=== PATIENT | female | born 1990 | race Caucasian/White ===

== ENCOUNTER 2020-07-09 14:35 | Outpatient (REF) | payer MEDICAID, SELFPAY ==
[2020-07-10 08:47] LABS: BV Int Neg Control Negative (Negative); BV Int Pos Control Positive (Positive)
== END 2020-07-09 14:36 | disposition home or self-care (01) ==
LOC: HO.LAB 14:35
PROVIDERS: PCP Student in an Organized Health Care Education/Training Program; Visit Provider Obstetrics & Gynecology
DX: Z01.419 Encounter for gynecological examination (general) (routine) without abnormal findings (principal); N89.8 Other specified noninflammatory disorders of vagina
CPT/HCPCS: 87480; 87510; 87660; 88142

== ENCOUNTER → 2021-02-27 11:49 | Outpatient (BNVA) | payer MEDICAID, SELFPAY | PROVIDERS: Visit Provider Obstetrics & Gynecology | CPT/HCPCS: 99212 ==

== ENCOUNTER 2021-11-11 10:39 | Outpatient (REF) | payer MEDICAID, SELFPAY ==
[2021-11-11 16:09] LABS: CT PCR NOT DETECTED (Not Detect.); NG PCR NOT DETECTED (Not Detect.)
== END 2021-11-11 10:40 | disposition home or self-care (01) ==
LOC: HO.LAB 10:39
PROVIDERS: Visit Provider Advanced Practice Midwife
DX: Z01.419 Encounter for gynecological examination (general) (routine) without abnormal findings (principal); Z20.2 Contact with and (suspected) exposure to infections with a predominantly sexual mode of transmission
CPT/HCPCS: 87491; 87591

== ENCOUNTER 2022-01-15 07:56 | Outpatient (REF) | payer MEDICAID, SELFPAY ==
[2022-01-15 08:30] LABS: COVID-19 Test Positive (Negative); IDNOW Serial# 16C4AD1C
== END 2022-01-15 07:57 | disposition home or self-care (01) ==
LOC: HO.LAB 07:56
PROVIDERS: Visit Provider Internal Medicine
DX: Z20.822 Contact with and (suspected) exposure to COVID-19 (principal)
CPT/HCPCS: 87635; C9803

== ENCOUNTER 2022-04-24 06:31 | Emergency (ER) | payer MEDICAID, SELFPAY ==
--- NOTE | ~2022-04-24 | CT_ITS ---
EXAMINATION: CT ABDOMEN AND PELVIS WITHOUT CONTRAST CLINICAL INFORMATION: Right lower quadrant pain, rule out appendicitis. COMPARISON: Pelvic ultrasound from earlier today. TECHNIQUE: Multidetector volumetric imaging was performed from the superior aspect of the liver through the pubic symphysis. Sagittal and coronal reformatted images were obtained on the technologist's workstation. Lack of intravenous and oral contrast limits visceral evaluation. This CT examination was performed using dose optimization techniques as appropriate, variously including the following: *Automated exposure control *Adjustment of mA and/or kV according to patient size (this includes techniques or standardized protocols for targeted exams where dose is matched to indication/reason for exam; i.e. extremities or head) *Use of iterative reconstruction technique DLP: 714 mGy-cm FINDINGS: LUNG BASES: The visualized lung bases are unremarkable. LIVER, GALLBLADDER, AND BILIARY TREE: Unremarkable. PANCREAS: Unremarkable. SPLEEN: Unremarkable. ADRENAL GLANDS: Unremarkable. KIDNEYS AND URETERS: The kidneys are normal in size, shape, and attenuation. Punctate nonobstructing intrarenal calculi are seen bilaterally. No hydroureteronephrosis. No perinephric stranding. BLADDER: Unremarkable. GASTROINTESTINAL TRACT: The stomach and small bowel unremarkable. The terminal ileum shows mild mural fatty infiltration without surrounding abnormality. The cecum extends into the right hemipelvis and abuts the right adnexa. Mild adjacent free fluid is seen. A definitive abnormal appendix is not seen. The cecum and remainder of the large bowel is unremarkable. The rectum is unremarkable. ABDOMINAL WALL: No significant hernia is appreciated. LYMPH NODES: No lymphadenopathy. VASCULAR: Unremarkable. PELVIC VISCERA: Anteverted/anteflexed uterus. Mild pelvic free fluid with mild prominence of the ovaries bilaterally. OSSEOUS STRUCTURES: Unremarkable. CT/CT abdomen pelvis wo con IMPRESSION: 1. Extension of the cecum inferiorly into the right hemipelvis confounds evaluation. This abuts the right adnexa with mild adjacent free fluid. No definitive acute appendicitis. Free fluid may be secondary to physiologic fluid from the ovaries. Mild mural fatty infiltration in the terminal ileum is nonspecific, but can be seen as sequelae of previous infectious/inflammatory process. Pelvic ultrasound from today showed no significant abnormality. If pain persists or worsens, short-term CT follow-up, preferably with intravenous and oral contrast is recommended as clinically indicated. 2. Punctate nonobstructing intrarenal calculi bilaterally.
--- NOTE | ~2022-04-24 | US_ITS ---
EXAMINATION: US PELVIS CLINICAL INFORMATION: Right lower quadrant pain, rule out ovarian torsion. COMPARISON: None TECHNIQUE: Ultrasound of the pelvis is performed using both transabdominal and transvaginal transducers along with Doppler. Transvaginal imaging is performed due to inadequate visualization transabdominally. FINDINGS: Uterus: Anteverted/anteflexed measuring 7.2 x 3.3 x 5.1 cm. The endometrial stripe measures up to 0.2 cm without focal abnormality. The cervix is closed with mild anechoic fluid within the canal. No other focal abnormality. Mild pelvic free fluid. Right ovary: 3.5 x 2.8 x 2.5 cm with a volume of 12.8 mL. Dominant anechoic follicle measuring 1.6 cm. Doppler showed no abnormal vascular flow. Left ovary: 3.9 x 3.2 x 3.1 cm with a volume of 20.3 mL. A dominant anechoic follicle measures 3.2 x 1.2 x 2.4 cm. A smaller follicle measures 2.5 x 1.5 x 1.7 cm. Doppler showed no abnormal vascular flow. US/US pelvic ovarian doppler IMPRESSION: 1. Small bilateral ovarian dominant follicles, mild anechoic fluid within the cervical canal and mild pelvic free fluid is likely physiologic. No evidence for ovarian torsion.
--- NOTE | ~2022-04-24 | US_ITS ---
EXAMINATION: US PELVIS CLINICAL INFORMATION: Right lower quadrant pain, rule out ovarian torsion. COMPARISON: None TECHNIQUE: Ultrasound of the pelvis is performed using both transabdominal and transvaginal transducers along with Doppler. Transvaginal imaging is performed due to inadequate visualization transabdominally. FINDINGS: Uterus: Anteverted/anteflexed measuring 7.2 x 3.3 x 5.1 cm. The endometrial stripe measures up to 0.2 cm without focal abnormality. The cervix is closed with mild anechoic fluid within the canal. No other focal abnormality. Mild pelvic free fluid. Right ovary: 3.5 x 2.8 x 2.5 cm with a volume of 12.8 mL. Dominant anechoic follicle measuring 1.6 cm. Doppler showed no abnormal vascular flow. Left ovary: 3.9 x 3.2 x 3.1 cm with a volume of 20.3 mL. A dominant anechoic follicle measures 3.2 x 1.2 x 2.4 cm. A smaller follicle measures 2.5 x 1.5 x 1.7 cm. Doppler showed no abnormal vascular flow. US/US pelvic and transvaginal IMPRESSION: 1. Small bilateral ovarian dominant follicles, mild anechoic fluid within the cervical canal and mild pelvic free fluid is likely physiologic. No evidence for ovarian torsion.
[2022-04-24 06:50] VITALS: BP 149/74; PULSE 105; RESP 16; TEMP 36.4; O2SAT 97; BMI 60.0
[2022-04-24 07:21] LABS: Appearance Urine Hazy; Color Urine Yellow; Glucose Urine UA Negative (Negative); Hematocrit 37.4 % (37.0-47.0); Hemoglobin 13.3 g/dl (12.0-16.0); Leukocyte Esterase Urine Small (1+) (Negative); Mean Corpuscular HGB Conc 35.6 g/dl (31.0-35.0); Mean Corpuscular Hemoglobin 29.5 pg (27.0-33.0); Mean Corpuscular Volume 82.9 fL (80.0-98.0); Mean Platelet Volume 9.2 fL (9.4-12.3); Nitrite Urine Negative (Negative); Platelet Count 297 X10*3/uL (160-400); Red Blood Count 4.51 X10*6/uL (4.20-5.50); Red Cell Distribution Width 11.7 % (11.0-16.0); Specific Gravity - Urine 1.025 (1.005-1.025); Urine Blood Moderate (2+) (Negative); Urine Ketones Negative (Negative); Urine Protein Negative (Neg-Trace); White Blood Count 7.6 X10*3/uL (4.8-10.8)
[2022-04-24 07:28] LABS: Bacteria Urine 4+ (None Seen); Hyaline Casts Urine 0-2 /LPF (0-2); RBC Urine 0-2 /HPF (0-2); UACC Culture Trigger YES; WBC Urine 21-50 /HPF (0-5)
[2022-04-24 07:43] LABS: Alanine Aminotransferase 11 U/L (0-31); Albumin Level 4.5 g/dL (3.5-5.0); Alkaline Phosphatase 59 U/L (39-117); Anion Gap 15 (12-20); Aspartate Amino Transferase 15 U/L (5-31); Bilirubin Direct 0.2 mg/dL (0.0-0.5); Bilirubin Total 0.4 mg/dL (0.0-1.0); Blood Urea Nitrogen 15 mg/dL (9-16); Carbon Dioxide 23 mmol/L (22-29); Chloride 103 mmol/L (96-108); Creatinine Clr Calc Pharmacy 171.2; Estimated Glomerular Filt Rate > 60; Glucose Random 98 mg/dL (60-115); Lipase 22 U/L (8-78); Potassium 3.7 mmol/L (3.3-5.1); Sodium 137 mmol/L (135-145); Total Protein 7.4 g/dL (6.5-8.0)
--- NOTE | 2022-04-24 07:47 | ED_ITS ---
HPI - Abdominal Pain General Chief Complaint: Abdominal Pain Stated Complaint: abd pain Time Seen by Provider: 04/24/22 07:33 Source: patient Mode of arrival: ambulatory Limitations: no limitations History of Present Illness HPI narrative: 31-year-old female came in for evaluation of lower abdominal pain. Pain started since 05:00 awake the patient from sleep, pain started in the suprapubic area radiating both sides right and left, pain has been constant since it started, described as moderate 7/10, movement and driving (described her ride to the hospital was bumpy) make it worse, nothing relieves the pain, patient declined any dysuria or hematuria or frequency urination, normal bowel movement last night, normal appetite, never had abdominal surgery in the past, never had similar symptoms in the past, no vaginal discharge or bleeding patient decline chance of being . Related Data Previous Rx's Medication Instructions Recorded levonorgestrel 120 mcg-e.estradiol 1 patch transdermal QWEEK #3 02/27/21 30 mcg/24 hr weekly transderm patches patch (Twirla) levonorgestrel 120 mcg-e.estradiol 1 patch transdermal QWEEK #3 04/05/22 30 mcg/24 hr weekly transderm packets patch (Twirla) Allergies Allergy/AdvReac Type Severity Reaction Status Date / Time No Known Allergies Allergy Mild UNKNOWN Verified 11/11/21 10:53 Review of Systems Review of Systems All other systems are reviewed and are negative Constitutional: Reports as per HPI and Reports no additional constitutional complaints Eyes: Reports as per HPI and Reports no additional eye complaints Reports system reviewed and no additional complaints, except as documented Cardiovascular: Reports as per HPI and Reports no additional cardiovascular complaints Respiratory: Reports as per HPI and Reports no additional respiratory complaints Gastrointestinal: Reports as per HPI and Reports no additional gastrointestinal complaints Genitourinary: Reports no additional female genitourinary complaints Musculoskeletal: Reports no additional musculoskeletal complaints Skin/Breast: Reports system reviewed and no additional complaints, except as docu Psychiatric: Reports no additional psychiatric complaints Endocrine: Reports no additional endocrine complaints Hematologic/Lymphatic: Reports no additional hematologic/lymphatic complaints Allergic/Immunologic: Reports no additional allergic/immunologic complaints Reports system reviewed and no additional complaints, except as documented and Reports Abnormal speech present PMFSH Past Medical History Medical History Hx of abnormal cervical Pap smear Hx of human papillomavirus infection Social History Social History Alcohol intake: never Patient Tobacco Use Status: Never used Tobacco Use of substances other than those prescribed or required for medical reasons: No Advance Directives: No Advance Directives Information Provided: Yes Patient : No Current occupational status: employed Current occupation: [employer] Sexual orientation: Straight/Heterosexual Gender identity: Female Physical Exam ED Vital Signs: Vital Signs - 24 hr 04/24/22 06:50 04/24/22 07:50 04/24/22 09:40 Temperature 97.6 F 98.5 F 98.2 F Pulse Rate 105 H 85 86 Respiratory Rate 16 14 12 Blood Pressure 149/74 H 116/78 115/66 Pulse Oximetry 97 100 95 Oxygen Delivery Method Room Air Room Air Room Air 04/24/22 10:41 Temperature Pulse Rate 75 Respiratory Rate 16 Blood Pressure 112/73 Pulse Oximetry 97 Oxygen Delivery Method Room Air BMI result Body Mass Index 60.0 Vital signs have been reviewed as appeared to be correct. Blood pressure normal. Heart rate normal. Respiration rate normal. Temperature normal. Oxygen saturation normal. Appearance: Alert. Oriented X3. No acute distress. Head: Normal external exam. Normocephalic. Atraumatic. No Jacobsen signs noted. No raccoon eyes noted Eyes: PERRLA. EOMI. Conjunctiva and sclera normal. Eyelids normal. ENT: TM's Normal. Pharynx normal. Uvula midline. Moist mucous membranes. No trismus noted. No drooling noted. No muffled voice noted. Neck: Normal inspection. Neck supple. FROM. No adenopathy. Thyroid Normal. No meningeal signs. No neck mass noted. CVS: Normal heart rate and rhythm. Heart sound normal. No murmurs noted. Pulses normal throughout. Respiratory: No respiratory distress. Painless inspiration. Breath sounds normal. No wheezes/rales/rhonchi noted. Chest nontender. No accessory muscle usage noted or decreased air movement noted. Abdomen: Soft, lower abdominal tenderness, mild rebound tenderness not fully in the lower abdomen both sides, no guarding. Bowel sounds normal in all 4 quadrants. No distention noted. No organomegaly noted. No visible injury noted. Back: No CVA tenderness. Full range of motion noted. Skin: Skin warm and dry. Normal skin color. Normal skin turgor. No rashes/l esions/lacerations noted. Extremities: No lower extremity edema. Extremities exhibit normal range of motion. Extremities nontender. Neuro: Oriented X 3. Cranial nerve exam: II-XII are grossly intact No motor deficit. No sensory deficit. Reflexes normal. Course Course Course Narrative: 31-year-old female came in for lower abdominal pain started today, normal labs with no abnormal WBCs. However the exam is concern for right lower quadrant tenderness with mild rebound tenderness, CT of the abdomen pelvis showed no definitive acute appendicitis but was a concern of dilated cecum the case was discussed with Dr. Bell who reviewed the CT recommended to discharge the patient home and follow up with him in the office in 2 days to consider repeat CT if needed. The plan was discussed with the patient who agreed on the plan. Repeat abdominal exam showed some improvement of the right lower quadrant tenderness but still mild, tenderness with no guarding, patient instructed to return if worsening of her symptoms. MDM - Abdominal Pain Lab Data Attestation: I reviewed the patient's lab results. Result diagrams: 04/24/22 07:15 04/24/22 07:15 Labs: Lab Results 04/24/22 04/24/22 04/24/22 Range/Units 07:15 07:15 07:15 WBC 7.6 (4.8-10.8) X10*3/uL RBC 4.51 (4.20-5.50) X10*6/uL Hgb 13.3 (12.0-16.0) g/dl Hct 37.4 (37.0-47.0) % MCV 82.9 (80.0-98.0) fL MCH 29.5 (27.0-33.0) pg MCHC 35.6 H (31.0-35.0) g/dl RDW 11.7 (11.0-16.0) % Plt Count 297 (160-400) X10*3/uL MPV 9.2 L (9.4-12.3) fL Absolute Nucleated RBC 0.000 (0.0-0.012) X10*3/uL Nucleated RBC % (auto) 0.0 (0.0-0.2) /100WBC Sodium 137 (135-145) mmol/L Potassium 3.7 (3.3-5.1) mmol/L Chloride 103 (96-108) mmol/L Carbon Dioxide 23 (22-29) mmol/L Anion Gap 15 (12-20) BUN 15 (9-16) mg/dL Creatinine 0.68 (0.5-1.4) mg/dL Estim Creat Clear Calc 171.2 Estimated GFR > 60 Random Glucose 98 (60-115) mg/dL Calcium 9.0 (8.4-10.2) mg/dL Total Bilirubin 0.4 (0.0-1.0) mg/dL Direct Bilirubin 0.2 (0.0-0.5) mg/dL AST 15 (5-31) U/L ALT 11 (0-31) U/L Alkaline Phosphatase 59 (39-117) U/L Total Protein 7.4 (6.5-8.0) g/dL Albumin 4.5 (3.5-5.0) g/dL Lipase 22 (8-78) U/L Urine Color Yellow Urine Appearance Hazy Urine pH 6.0 (5.0-8.0) Ur Specific [place] 1.025 (1.005-1.025) Urine Protein Negative (Neg-Trace) mg/dL Urine Glucose (UA) Negative (Negative) mg/dL Urine Ketones Negative (Negative) mg/dL Urine Blood Moderate (2+) H (Negative) Urine Nitrite Negative (Negative) Ur Leukocyte Esterase Small (1+) H (Negative) Urine RBC 0-2 (0-2) /HPF Urine WBC 21-50 H (0-5) /HPF Ur Squamous Epith Cells 6-10 (0-2) /HPF Urine Bacteria 4+ (None Seen) Hyaline Casts 0-2 (0-2) /LPF Urine Test (NEGATIVE) 04/24/22 Range/Units 08:09 WBC (4.8-10.8) X10*3/uL RBC (4.20-5.50) X10*6/uL Hgb (12.0-16.0) g/dl Hct (37.0-47.0) % MCV (80.0-98.0) fL MCH (27.0-33.0) pg MCHC (31.0-35.0) g/dl RDW (11.0-16.0) % Plt Count (160-400) X10*3/uL MPV (9.4-12.3) fL Absolute Nucleated RBC (0.0-0.012) X10*3/uL Nucleated RBC % (auto) (0.0-0.2) /100WBC Sodium (135-145) mmol/L Potassium (3.3-5.1) mmol/L Chloride (96-108) mmol/L Carbon Dioxide (22-29) mmol/L Anion Gap (12-20) BUN (9-16) mg/dL Creatinine (0.5-1.4) mg/dL Estim Creat Clear Calc Estimated GFR Random Glucose (60-115) mg/dL Calcium (8.4-10.2) mg/dL Total Bilirubin (0.0-1.0) mg/dL Direct Bilirubin (0.0-0.5) mg/dL AST (5-31) U/L ALT (0-31) U/L Alkaline Phosphatase (39-117) U/L Total Protein (6.5-8.0) g/dL Albumin (3.5-5.0) g/dL Lipase (8-78) U/L Urine Color Urine Appearance Urine pH (5.0-8.0) Ur Specific [place] (1.005-1.025) Urine Protein (Neg-Trace) mg/dL Urine Glucose (UA) (Negative) mg/dL Urine Ketones (Negative) mg/dL Urine Blood (Negative) Urine Nitrite (Negative) Ur Leukocyte Esterase (Negative) Urine RBC (0-2) /HPF Urine WBC (0-5) /HPF Ur Squamous Epith Cells (0-2) /HPF Urine Bacteria (None Seen) Hyaline Casts (0-2) /LPF Urine Test NEGATIVE (NEGATIVE) Imaging Data CT abdomen and pelvis: Attestation: I personally reviewed and interpreted this imaging study as follows: Radiologist's impression: 1. Extension of the cecum inferiorly into the right hemipelvis confounds evaluation. This abuts the right adnexa with mild adjacent free fluid. No definitive acute appendicitis. Free fluid may be secondary to physiologic fluid from the ovaries. Mild mural fatty infiltration in the terminal ileum is nonspecific, but can be seen as sequelae of previous infectious/inflammatory process. Pelvic ultrasound from today showed no significant abnormality. ? If pain persists or worsens, short-term CT follow-up, preferably with intravenous and oral contrast is recommended as clinically indicated. ? 2. Punctate nonobstructing intrarenal calculi bilaterally.. Pelvic ultrasound: Attestation: I personally reviewed and interpreted this imaging study as follows: Radiologist's impression: 1. Small bilateral ovarian dominant follicles, mild anechoic fluid within the cervical canal and mild pelvic free fluid is likely physiologic. No evidence for ovarian torsion. Discharge Plan Discharge Clinical Impression: Abdominal pain Patient Disposition: Home, Self-Care Instructions: Abdominal Pain (ED) Prescriptions: No Action Twirla 120-30 mcg/24 hr patch weekly 1 patch transdermal QWEEK Qty: 3 3RF Rx Instructions: apply once weekly for 3 weeks of a 4-week cycle Twirla 120-30 mcg/24 hr patch weekly 1 patch transdermal QWEEK Qty: 3 11RF Rx Instructions: apply once weekly for 3 weeks of a 4-week cycle Referrals: Regulo Bell MD [Physician] - Aubree Resendez MD [Primary Care Provider] -
[2022-04-24 07:50] VITALS: BP 116/78; PULSE 85; RESP 14; TEMP 36.9; O2SAT 100
--- NOTE | 2022-04-24 08:01 | PC.NURSE ---
Pt ao x 4. Clear lung sounds bilaterally. Abd is soft and non tender with active bowel sounds. States lower abd pain since 0500 with no vaginal discharge or bleeding. LMP 04/04/2022. Currently on control. Pt aware of plan of care.
[2022-04-24 08:27] LABS: UPreg QC Valid YES; Urine Pregnancy NEGATIVE (NEGATIVE)
[2022-04-24 09:40] VITALS: BP 115/66; PULSE 86; RESP 12; TEMP 36.8; O2SAT 95
--- NOTE | 2022-04-24 09:42 | PC.NURSE ---
Pt ao x 4. Laying in bed. Reports decreasing pain. Aware of plan of care.
[2022-04-24 10:41] VITALS: BP 112/73; PULSE 75; RESP 16; O2SAT 97
[2022-04-24 13:28] VITALS: BP 111/78; PULSE 80; RESP 14; TEMP 36.8; O2SAT 99
== END 2022-04-24 13:37 | disposition home or self-care (01) ==
PROVIDERS: Emergency Provider Emergency Medicine; PCP Student in an Organized Health Care Education/Training Program
DX: R10.30 Lower abdominal pain, unspecified (principal)
CPT/HCPCS: 36415; 74176; 76830; 76856; 80053; 81001; 81025; 82248; 83690; 85027; 87086; 87088; 87186; 93975; 99284

== ENCOUNTER 2022-11-19 04:05 | Emergency (ER) | payer MEDICAID, SELFPAY ==
[2022-11-19 04:22] VITALS: BP 116/75; PULSE 105; RESP 16; TEMP 36.5; O2SAT 95; BMI 33.5
[2022-11-19 04:55] VITALS: BP 124/80; PULSE 104; RESP 18; TEMP 37; O2SAT 97
[2022-11-19 05:13] LABS: MANUAL DIFF FLAG NO
[2022-11-19 05:14] LABS: Basophils Percent Auto 0.3 % (0-2); Eosinophils Absolute Auto 0.1 X10*3/uL (0.0-0.4); Eosinophils Percent Auto 1.1 % (0-4); Hematocrit 39.4 % (37.0-47.0); Hemoglobin 13.8 g/dl (12.0-16.0); Imm Gran Abs Auto 0.02 X10*3/uL (0.00-0.03); Imm Gran Pct Auto 0.3 % (0.0-0.4); Lymphocytes Absolute Auto 1.2 X10*3/uL (1.2-4.9); Lymphocytes Percent Auto 18.4 % (20-40); Mean Corpuscular Hemoglobin 29.2 pg (27.0-33.0); Mean Corpuscular Volume 83.3 fL (80.0-98.0); Mean Platelet Volume 9.1 fL (9.4-12.3); Monocytes Absolute Auto 0.4 X10*3/uL (0.1-1.2); Monocytes Percent Auto 5.8 % (2-11); Neutrophils Absolute Auto 4.6 x10*3/uL (2.0-8.3); Neutrophils Percent Auto 74.1 % (45-73); Platelet Count 299 X10*3/uL (160-400); Red Blood Count 4.73 X10*6/uL (4.20-5.50); Red Cell Distribution Width 11.9 % (11.0-16.0); White Blood Count 6.3 X10*3/uL (4.8-10.8)
--- NOTE | 2022-11-19 05:19 | PC.NURSE ---
Patient alert and oriented. IV line accessed left ac 20 gauge. Lab drawn per orders. Patient is waiting to be seen by providers. Call mccann within patients reach.
[2022-11-19 06:33] LABS: Anion Gap 16 (12-20)
[2022-11-19 06:37] LABS: Alanine Aminotransferase 12 U/L (0-31); Albumin Level 4.5 g/dL (3.5-5.0); Alkaline Phosphatase 60 U/L (39-117); Aspartate Amino Transferase 16 U/L (5-31); Bilirubin Total 0.6 mg/dL (0.0-1.0); Blood Urea Nitrogen 11 mg/dL (9-16); Calcium 8.7 mg/dL (8.4-10.2); Carbon Dioxide 17 mmol/L (22-29); Chloride 109 mmol/L (96-108); Creatinine Clr Calc Pharmacy 114.1; Estimated Glomerular Filt Rate > 60; Glucose Random 109 mg/dL (60-115); Lipase 16 U/L (8-78); Potassium 3.6 mmol/L (3.3-5.1); Sodium 138 mmol/L (135-145); Total Protein 7.5 g/dL (6.5-8.0)
--- NOTE | 2022-11-19 07:23 | PC.NURSE ---
Patient complaint of nausea ao x 4 neuros intact no recent sick contacts. Neuros intact awaiting physician.
--- NOTE | 2022-11-19 07:28 | ED.NAVMDI ---
HPI - Nausea/Vomiting/Diarrhea General Chief complaint: Nausea/Vomiting/Diarrhea Stated complaint: Nausea/ very sensitive/ Has not eaten 24Hrs Time Seen by Provider: 11/19/22 07:27 Source: patient Mode of arrival: ambulatory Limitations: no limitations History of Present Illness HPI Narrative: 3 days of Nausea, vomiting and diarrhea, still having nausea and diarrhea. No one else sick at home no fever. MD elicited complaint: nausea, vomiting and diarrhea Onset (ago): day(s) Associated nausea: Yes Associated abdominal pain: Yes Related Data Previous Rx's Medication Instructions Recorded levonorgestrel 120 mcg-e.estradiol 1 patch transdermal QWEEK #3 02/27/21 30 mcg/24 hr weekly transderm patches patch (Twirla) levonorgestrel 120 mcg-e.estradiol 1 patch transdermal QWEEK #3 07/13/22 30 mcg/24 hr weekly transderm packets patch (Twirla) ondansetron 4 mg disintegrating 4 mg PO Q8H 4 days #12 tabs 11/19/22 tablet Allergies Allergy/AdvReac Type Severity Reaction Status Date / Time No Known Allergies Allergy Mild UNKNOWN Verified 11/19/22 04:27 Review of Systems Review of Systems: Yes all other systems are reviewed and are negative Gastrointestinal: Gastrointestinal: Reports diarrhea, Reports nausea and Reports vomiting Neurologic: Denies Sensory deficit (Neuro) PMFSH Past Medical History Medical History Hx of abnormal cervical Pap smear Hx of human papillomavirus infection Social History Social History Alcohol intake: never Patient Tobacco Use Status: Never used Tobacco Smoked in Last 30 Days: No Use of substances other than those prescribed or required for medical reasons: No Advance Directives: No Advance Directives Information Provided: Yes Patient : No Current occupational status: employed Current occupation: [employer] Sexual orientation: Straight/Heterosexual Gender identity: Female Physical Exam Vital Signs: Vital Signs: Last Vital Signs Temp 98.6 F 11/19/22 04:55 Pulse 104 H 11/19/22 04:55 Resp 18 11/19/22 04:55 BP 124/80 11/19/22 04:55 Pulse Ox 97 11/19/22 04:55 O2 Del Method 11/19/22 04:55 BMI result Body Mass Index 33.5 Const: General: healthy appearing Nutritional Appearance: average body habitus Orientation/consciousness: oriented to person and patient oriented x3 Limitations: no limitations HEENT: Head: Yes normal to inspection Ears: external ears normal General nose exam: Normal external nose present Mouth: Normal oral and palatal mucosa present and oropharynx normal Throat: Yes posterior oropharynx normal Eyes: General: appearance normal, both eyes and all related structures Neck: Other: supple Neck: Yes normal visual inspection Chest: Chest palpation & inspection: normal inspection of the chest Resp: Auscultation: clear to auscultation bilaterally Cardio: Jugular venous distension: no JVD Rate: regular rate Rhythm: regular rhythm Heart sounds: S1 normal heart sound present and S2 normal heart sound present GI: Inspection: Yes normal to inspection Palpation (GI): Soft to palpation, nontender and No hepatosplenomegaly present Auscultation: normal bowel sounds : General: Yes no CVA tenderness Back/Spine/Pelvis: Back: no CVA tenderness Skin: General skin exam: no rashes or lesions noted Neuro: General: oriented to person and patient oriented x3 Cranial nerves: Yes CN's II-XII intact bilaterally Motor exam (neuro): 5/5 motor strength present throughout Sensory Exam: No Sensory deficit (Neuro) Extrem: General: Yes normal to inspection Psych: Appearance: grossly normal Course Reevaluation(s) Reevaluation #1: abdomen soft, tolerating po will dc on zofran Time: 09:52 Medications Administered Discontinued Medications Generic Name Dose Route Start Last Admin Trade Name Freq PRN Reason Stop Dose Admin Sodium Chloride 1,000 mls @ 999 mls/hr 11/19/22 07:45 11/19/22 09:04 Ns IVCONT 11/19/22 09:45 Infused .Q1H1M LAXMI Infusion Ondansetron HCl 4 mg 11/19/22 07:31 11/19/22 07:36 Ondansetron Hcl 4 Mg/2 Ml Vial IVPUSH 11/19/22 07:32 4 mg ONCE ONE Administration Medical Decision Making Differential Diagnosis Differential Diagnoses: The differential diagnosis associated with the presentation includes (viral gastroenteritis, food poisoning, appendicitis) Lab Data MDM Lab Attestation statement: I reviewed the patient's lab results. 11/19/22 05:09 11/19/22 06:09 Labs: Lab Results 11/19/22 11/19/22 Range/Units 05:09 06:09 WBC 6.3 (4.8-10.8) X10*3/uL RBC 4.73 (4.20-5.50) X10*6/uL Hgb 13.8 (12.0-16.0) g/dl Hct 39.4 (37.0-47.0) % MCV 83.3 (80.0-98.0) fL MCH 29.2 (27.0-33.0) pg MCHC 35.0 (31.0-35.0) g/dl RDW 11.9 (11.0-16.0) % Plt Count 299 (160-400) X10*3/uL MPV 9.1 L (9.4-12.3) fL Immature Gran % (Auto) 0.3 (0.0-0.4) % Neut % (Auto) 74.1 H (45-73) % Lymph % (Auto) 18.4 L (20-40) % [place] % (Auto) 5.8 (2-11) % Eos % (Auto) 1.1 (0-4) % Baso % (Auto) 0.3 (0-2) % Lymph # (Auto) 1.2 (1.2-4.9) X10*3/uL [place] # (Auto) 0.4 (0.1-1.2) X10*3/uL Eos # (Auto) 0.1 (0.0-0.4) X10*3/uL Baso # (Auto) 0.0 (0.0-0.2) X10*3/uL Abs Immat Gran (auto) 0.02 (0.00-0.03) X10*3/uL Absolute Neuts (auto) 4.6 (2.0-8.3) x10*3/uL Absolute Nucleated RBC 0.000 (0.0-0.012) X10*3/uL Nucleated RBC % (auto) 0.0 (0.0-0.2) /100WBC Sodium 138 (135-145) mmol/L Potassium 3.6 (3.3-5.1) mmol/L Chloride 109 H (96-108) mmol/L Carbon Dioxide 17 L (22-29) mmol/L Anion Gap 16 (12-20) BUN 11 (9-16) mg/dL Creatinine 0.72 (0.5-1.4) mg/dL Estim Creat Clear Calc 114.1 Estimated GFR > 60 Random Glucose 109 (60-115) mg/dL Calcium 8.7 (8.4-10.2) mg/dL Total Bilirubin 0.6 (0.0-1.0) mg/dL AST 16 (5-31) U/L ALT 12 (0-31) U/L Alkaline Phosphatase 60 (39-117) U/L Total Protein 7.5 (6.5-8.0) g/dL Albumin 4.5 (3.5-5.0) g/dL Lipase 16 (8-78) U/L Tests considered The following testing was considered but not selected: CT of abdomen considered but abdomen is soft, labs are normal Discharge Plan Discharge Clinical Impression: Gastroenteritis Patient Disposition: Home, Self-Care Instructions: Acute Nausea and Vomiting (ED), Acute Diarrhea (ED) Prescriptions: New ondansetron 4 mg tablet,disintegrating 4 mg PO Q8H 4 Days Qty: 12 0RF No Action Twirla 120-30 mcg/24 hr patch weekly 1 patch transdermal QWEEK Qty: 3 5RF Rx Instructions: apply once weekly for 3 weeks of a 4-week cycle Twirla 120-30 mcg/24 hr patch weekly 1 patch transdermal QWEEK Qty: 3 11RF Rx Instructions: apply once weekly for 3 weeks of a 4-week cycle
[2022-11-19] MEDS: ondansetron HCL 4 MG/2 ML VIAL IVPUSH (07:36)
[2022-11-19] MEDS: 0.9 % Sodium Chloride 1,000 ML 999 ML IVCONT (07:38)
--- NOTE | 2022-11-19 08:39 | PC.NURSE ---
PAtient IV infiltrated left ac warm blanket applied new IV placed right hand tolerating IVF reports relief from ant emetic will CTM
[2022-11-19 10:05] VITALS: BP 118/70; PULSE 82; RESP 14; O2SAT 98
== END 2022-11-19 10:09 | disposition home or self-care (01) ==
PROVIDERS: Emergency Provider Emergency Medicine
DX: K52.9 Noninfective gastroenteritis and colitis, unspecified (principal); Z79.899 Other long term (current) drug therapy
CPT/HCPCS: 36415; 80053; 83690; 85025; 96374; 99284; J2405

== ENCOUNTER 2023-05-06 10:49 | Outpatient (REF) | payer MEDICAID, SELFPAY ==
[2023-05-06 15:16] LABS: Cholesterol 220 mg/dL (<200); HDL Cholesterol 66 mg/dL (>40); LDL Cholesterol Calculated 130 mg/dL (<100); Triglycerides 121 mg/dL (<150)
[2023-05-06 15:22] LABS: Vitamin D 25-OH Total 31.6 ng/mL (>30)
[2023-05-09 12:08] LABS: TS Negative Control Passed; TS Panel A 0; TS Panel B 0; TS Positive Control Passed; TSpotTB Negative (Negative)
== END 2023-05-06 10:50 | disposition home or self-care (01) ==
LOC: HO.CHCLDS 10:49
PROVIDERS: Visit Provider Pediatrics
DX: Z00.00 Encounter for general adult medical examination without abnormal findings (principal); Z11.1 Encounter for screening for respiratory tuberculosis; E55.9 Vitamin D deficiency, unspecified
CPT/HCPCS: 36415; 80061; 82306; 86481

== ENCOUNTER 2023-12-22 09:48 | Emergency (ER) | payer MEDICAID, SELFPAY ==
--- NOTE | ~2023-12-22 | XR_ITS ---
EXAMINATION: XR SHOULDER, RIGHT CLINICAL INFORMATION: Right shoulder pain COMPARISON: 06/30/2015 TECHNIQUE: Two views of the right shoulder. FINDINGS: The bones and soft tissues are normal. No fracture. Glenohumeral and acromioclavicular alignment is anatomic with normal joint space. No abnormal soft tissue calcifications. XR/XR shoulder RT min 2V IMPRESSION: Normal right shoulder.
[2023-12-22 09:56] VITALS: BP 139/76; PULSE 86; RESP 20; TEMP 37; O2SAT 98; BMI 28.2
--- NOTE | 2023-12-22 10:54 | ED.EXTPRO ---
HPI - Extremity Problem General Chief complaint: Extremity Problem Stated complaint: r shoulder pain Time Seen by Provider: 12/22/23 10:51 Source: patient Mode of arrival: ambulatory Limitations: no limitations History of Present Illness HPI Narrative: 33 yo female presents to the emergency department with right shoulder pain starting Tuesday. Was carrying groceries and felt crack in right shoulder. Reports grocery bag she was carrying when this started has around 10 cans in them. Today pain is radiating to upper shoulder and back. Worse w/ movement better at rest. Denies chest pain, SOB, palpitations, nausea, vomiting, diarrhea, dizziness, numbness, tingling Related Data Previous Rx's ?Medication ?Instructions ?Recorded levonorgestrel 120 mcg-e.estradiol 1 patch transdermal QWEEK #3 02/27/21 30 mcg/24 hr weekly transderm patches patch (Twirla) levonorgestrel 120 mcg-e.estradiol 1 patch transdermal QWEEK #3 07/13/22 30 mcg/24 hr weekly transderm packets patch (Twirla) ondansetron 4 mg disintegrating 4 mg PO Q8H 4 days #12 tabs 11/19/22 tablet ketorolac 10 mg tablet 10 mg PO TID PRN pain 5 days #15 12/22/23 tabs Allergies Allergy/AdvReac Type Severity Reaction Status Date / Time No Known Allergies Allergy Mild UNKNOWN Verified 12/22/23 09:58 Review of Systems Review of Systems: Yes all other systems are reviewed and are negative PMFSH Past Medical History Attestation statement: The following information was validated with the patient. Source: old records reviewed and nursing notes reviewed Medical History Hx of abnormal cervical Pap smear Hx of human papillomavirus infection Social History Social History Alcohol intake: never Patient Tobacco Use Status: Never used Tobacco Advance Directives: No Current occupational status: employed Current occupation: [employer] Sexual orientation: Straight/Heterosexual Gender identity: Female Physical Exam Vital Signs: Vital Signs: Last Vital Signs Temp 98.6 F 12/22/23 09:56 Pulse 86 12/22/23 09:56 Resp 20 12/22/23 09:56 BP 139/76 12/22/23 09:56 Pulse Ox 98 04/18/24 09:56 O2 Del Method Room Air 12/22/23 09:56 BMI result Body Mass Index 28.2 vss Appearance: Alert.? Oriented X3.? No acute distress.? Head: Normocephalic, atraumatic, no step-offs or deformities Eyes: Pupils equal, round and reactive to light.? CVS: Normal heart rate and rhythm.? Pulses normal.? Respiratory: No respiratory distress.? Breath sounds normal.? Abdomen: Soft and nontender.? Skin: Skin warm and dry.? Normal skin color.? Normal skin turgor.? Extremities: No lower extremity edema.? No calf ttp. 5/5 strength to bilateral upper and lower extremities Neuro: Oriented X 3.? No motor deficit.? No sensory deficit. CN 2-12 intact Course Reevaluation(s) Reevaluation #1: Normal right shoulder. Patient will follow up with ortho informaiton give. Time: 12:14 Reevaluation #2: Patient feeling much better. Will discharge with Toradol. She is able to move her right shoulder. Educated patient on diagnosis and treatment plan, answered all question, patient verbalizes understanding. At this time patient will be discharged home, advised to return with new or worsening symptoms. Educated on worrisome signs and symptoms and when to return. At this time I feel comfortable discharge home. Time: 13:34 Medications Administered Discontinued Medications Generic Name Dose Route Start Last Admin Trade Name Vikramq PRN Reason Stop Dose Admin Ketorolac Tromethamine 30 mg 12/22/23 11:30 12/22/23 12:18 Ketorolac Tromethamine 30 Mg/Ml Vial IM 12/22/23 11:31 30 mg ONCE ONE Administration Lidocaine 1 patch 12/22/23 11:34 12/22/23 12:18 Lidocaine 4 % Patch Adh..Patch TRANSDERMA 12/22/23 11:35 1 patch ONCE ONE Administration Protocol Medical Decision Making Medical Decision Making [facility] Narrative: 1055 33 yo female presenting to the emergency department with right shoulder pain starting Tuesday after lifting groceries. Physical exam with limited ROM in right shoulder secondary to pain. Cap refill <2 seconds b/l. Left upper extremity full ROM. Brachial, radial, ulnar pulses 2+ b/l. No wrist drop b/l. Normal sensation distally. HX and pe concerning for straing vs sprain vs rotator cuff injury vs tendinitis vs arthritis. Unlikley NV compromise, threat to limb, arterior or venous occlusion, acs. Plan- imaging and pain meds Differential Diagnosis Differential Diagnoses: The differential diagnosis associated with the presentation includes HX and pe concerning for straing vs sprain vs rotator cuff injury vs tendinitis vs arthritis. Unlikley NV compromise, threat to limb, arterior or venous occlusion, acs. Admission/Observation Consideration of admission/observation: Escalation of care including admission/observation considered unlikely Independent Interpretation I performed an independent interpretation of an: Plain X-Ray (XR/XR shoulder RT min 2V IMPRESSION: Normal right shoulder.) Radiology Impression Discussion of test interpretation with radiology: I have reviewed the radiologist's reading. External Record Review External record reviewed: Inpatient record, Office record, Outpatient record, Prior outpatient labs, Prior outpatient radiology, Primary care record and Outside ED record Critical Care Time Critical Care Time Critical Care Time: No Discharge Plan Discharge Clinical Impression: Acute pain of right shoulder Patient Disposition: Home, Self-Care Instructions: Shoulder Pain (ED), Arm Pain (ED) Additional Instructions: Take your medications as prescribed. If you were prescribed antibiotics today, it is important that you take your medication to their entirety, do not skip any doses, do not finish them early. Follow-up with your primary care provider this week. Return to the emergency department with new or worsening symptoms. Such as fevers, chills, chest pain, shortness of breath, nausea, vomiting, dizziness, headache, vision changes, lethargy In case of emergency call 911 XR/XR shoulder RT min 2V IMPRESSION: Normal right shoulder. Prescriptions: New ketorolac 10 mg tablet 10 mg PO TID PRN (Reason: pain) 5 Days Qty: 15 0RF No Action Twirla 120-30 mcg/24 hr patch weekly 1 patch transdermal QWEEK Qty: 3 5RF Rx Instructions: apply once weekly for 3 weeks of a 4-week cycle ondansetron 4 mg tablet,disintegrating 4 mg PO Q8H 4 Days Qty: 12 0RF Twirla 120-30 mcg/24 hr patch weekly 1 patch transdermal QWEEK Qty: 3 11RF Rx Instructions: apply once weekly for 3 weeks of a 4-week cycle Referrals: [facility] [Provider Group] - 2 days Elisa Golden MD [Primary Care Provider] - 2 days Stand Alone Forms: Work/School Release Discharge Date/Time: 12/22/23 13:20 Print Language: Armenian
[2023-12-22] MEDS: Lidocaine 4 % Patch ADH..PATCH 1 PATCH TRANSDERMA (12:18)
[2023-12-22] MEDS: Ketorolac Tromethamine 30 MG/ML VIAL IM (12:18)
== END 2023-12-22 13:20 | disposition home or self-care (01) ==
PROVIDERS: Emergency Provider Emergency Medicine; PCP Pediatrics
DX: M25.511 Pain in right shoulder (principal)
CPT/HCPCS: 73030; 96372; 99282; 99284; J1885

== ENCOUNTER 2025-02-03 09:12 | Emergency (ER) | payer MEDICAID, SELFPAY ==
[2025-02-03 09:14] VITALS: BP 121/73; PULSE 83; RESP 18; TEMP 36.3; O2SAT 99; BMI 33.2
--- NOTE | 2025-02-03 09:39 | ED_ITS ---
HPI - General Adult General Chief complaint: General Medical Stated complaint: sore throat Time Seen by Provider: 02/03/25 09:23 Source: patient Mode of arrival: ambulatory Limitations: no limitations History of Present Illness ED Provider: ALYSIA ORR narrative: 34 yo female with no sig PMH here with c/o sore throat 2 days. No fevers, no headaches, no abdominal pain. No rash. She doesn't have any real sick contacts but she saw her nephew and was told his teacher had COVID. She has not taken any OTC medications. MD complaint: sore throat Onset (ago): day(s) (2) Location: mouth Radiation: non-radiation Severity: moderate Quality: aching Pain Consistency: intermittent Relieving factors: none Exacerbating factors: other (swallowing) Associated symptoms: denies other symptoms Treatments prior to arrival: none Related Data Previous Rx's ?Medication ?Instructions ?Recorded levonorgestrel 120 mcg-e.estradiol 1 patch transdermal QWEEK #3 02/27/21 30 mcg/24 hr weekly transderm patches patch (Twirla) levonorgestrel 120 mcg-e.estradiol 1 patch transdermal QWEEK #3 07/13/22 30 mcg/24 hr weekly transderm packets patch (Twirla) ondansetron 4 mg disintegrating 4 mg PO Q8H 4 days #12 tabs 11/19/22 tablet ketorolac 10 mg tablet 10 mg PO TID PRN pain 5 days #15 12/22/23 tabs Allergies Allergy/AdvReac Type Severity Reaction Status Date / Time No Known Allergies Allergy Mild UNKNOWN Verified 02/03/25 09:15 Review of Systems Review of Systems: Constitutional : No Fever, No Chills, No Fatigue ENT/Mouth : pos sore throat, No Rhinorrhea Eyes: No Eye Pain, No Swelling, No Redness Cardiovascular : No Chest Pain, No SOB, No Dyspnea on Exertion Respiratory : No Cough, No Sputum Gastrointestinal : No Nausea, No Vomiting, No Diarrhea, No abdominal Pain Genitourinary : No Dysuria, No Urinary Frequency, No Hematuria, Musculoskeletal : No joint pain, No Myalgias, No Joint Swelling Skin : No Skin Lesions, No rash Neuro : No Weakness, No Numbness, No Dizziness, no Headache All other systems reviewed and are negative PMFSH Past Medical History Attestation statement: The following information was validated with the patient. 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 Oriented X3. No acute distress. Eyes: Pupils equal, round and reactive to light. ENT: Pharynx normal. mild erythema, no exudates Neck: Normal inspection. Neck supple. CVS: Normal heart rate and rhythm. Pulses normal. Respiratory: No respiratory distress. Breath sounds normal. Abdomen: Soft and nontender. Skin: Skin warm and dry. Normal skin color. Extremities: No lower extremity edema. Neuro: Oriented X 3. No motor deficit. No sensory deficit. CN2-12 intact Medications Administered Discontinued Medications Generic Name Dose Route Start Last Admin Trade Name Freq PRN Reason Stop Dose Admin Dexamethasone Sodium Phosphate 8 mg 02/03/25 09:44 02/03/25 09:52 Dexamethasone Sod Phosphate 4 Mg/Ml Vial PO 02/03/25 09:45 8 mg ONCE ONE Administration Ibuprofen 400 mg 02/03/25 09:44 02/03/25 09:51 Ibuprofen Oral Susp 200 Mg/10 Ml Oral.Susp PO 02/03/25 09:45 400 mg ONCE ONE Administration Medical Decision Making Medical Decision Making MDM Narrative: 34 yo female healthy here with c/o sore throat x 2 days. Her exam is benign mild erythema and swelling but no signs of deeper space infection - no stridor or drooling. At this time will obtain strep and viral swab. Differential Diagnosis Differential Diagnoses: The differential diagnosis associated with the presentation includes strep, viral syndrome, denies concern for STI Admission/Observation Consideration of admission/observation: Escalation of care including admission/observation considered not toxic, normal VS, neg tests stable for DC Lab Data MDM Lab Attestation statement: I reviewed the patient's lab results. Labs: Lab Results 02/03/25 Range/Units 09:26 Influenza Type A (PCR) NEGATIVE (Negative) Influenza Type B (PCR) NEGATIVE (Negative) RSV RNA Qual (PCR) NEGATIVE (Negative) SARS-CoV-2 RNA (RT-PCR) NEGATIVE (Negative) S. pyogenes GrpA ROZINA Negative (Negative) Discharge Plan Discharge Clinical Impression: Pharyngitis Qualifiers: Pharyngitis/tonsillitis etiology: unspecified etiology Qualified Code(s): J02.9 - Acute pharyngitis, unspecified Patient Disposition: Home, Self-Care Instructions: Pharyngitis (ED) Additional Instructions: rest and stay hydrated alternate tylenol and motrin for pain return for any worsening symptoms or concerns negative strep, covid, flu, rsv Prescriptions: No Action Twirla 120-30 mcg/24 hr patch weekly 1 patch transdermal QWEEK Qty: 3 5RF Rx Instructions: apply once weekly for 3 weeks of a 4-week cycle ondansetron 4 mg tablet,disintegrating 4 mg PO Q8H 4 Days Qty: 12 0RF ketorolac 10 mg tablet 10 mg PO TID PRN (Reason: pain) 5 Days Qty: 15 0RF Twirla 120-30 mcg/24 hr patch weekly 1 patch transdermal QWEEK Qty: 3 11RF Rx Instructions: apply once weekly for 3 weeks of a 4-week cycle Print Language: Hungarian
[2025-02-03] MEDS: Ibuprofen Oral Susp 200 MG/10 ML ORAL.SUSP 400 MG PO (09:51)
[2025-02-03] MEDS: dexAMETHasone sod phosphate 4 MG/ML VIAL 8 MG PO (09:52)
[2025-02-03 10:15] LABS: IDNOW Serial# 58CA691E; Strep A Nucleic Acid Negative (Negative)
[2025-02-03 11:15] LABS: Influenza A PCR NEGATIVE (Negative); Influenza B PCR NEGATIVE (Negative); Resp Syncy Virus RNA Qual PCR NEGATIVE (Negative); SARS COV2 PCR INHOUSE NEGATIVE (Negative)
[2025-02-03 11:28] VITALS: BP 120/75; PULSE 86; RESP 18; TEMP 36.6; O2SAT 98
== END 2025-02-03 11:29 | disposition home or self-care (01) ==
PROVIDERS: Emergency Provider Emergency Medicine; PCP Pediatrics
DX: J02.9 Acute pharyngitis, unspecified (principal); Z03.818 Encounter for observation for suspected exposure to other biological agents ruled out
CPT/HCPCS: 0241U; 87651; 99283; 99284; J1100